=== PATIENT | male | born 1970 | race Caucasian/White ===

== ENCOUNTER 2024-01-04 10:15 | Day surgery (SDC) | payer BC, OTHER ==
[2023-12-30 12:22] VITALS: BMI 31.1
[2024-01-04 10:41] VITALS: TEMP 97.5
[2024-01-04] MEDS: LIDOCAINE 1% (10MG/ML) FOR IV START INTRADERMA PRN (10:42)
[2024-01-04] MEDS: IV FLUID CONTINUATION 1,000 ML IV ONE (10:42)
[2024-01-04] MEDS: LACTATED RINGERS 1,000 ML IV SCH (10:42)
[2024-01-04] MEDS ORDERED: PROPOFOL 10 MG/ML 20 ML VIAL IV ONE (11:26)
--- NOTE | 2024-01-04 11:46 | P.PCN ---
Date of Procedure: 01/04/24 Preoperative Diagnosis: Positive Cologuard Postoperative Diagnosis: Descending colon polyp Procedure(s) Performed: Colonoscopy with hot forcep polypectomy Anesthesia: MAC Surgeon: Papi Carvajal Pathology: other (Descending colon polyp) Condition: stable Disposition: same day Indications for Procedure: 53-year-old male with recent finding of positive Cologuard. Denies any blood in his stool. Denies any family history of colon cancer. Plan for colonoscopy. Risks, benefits and alternatives were provided to the patient. All questions answered. Operative Findings: Descending colon polyp Description of Procedure: The patient was brought to the endoscopy suite. He was then placed in left lateral decubitus position and adequate sedation achieved using conscious sedation. A digital rectal exam was performed and mild internal hemorrhoids were palpated. An endoscope was then placed in the rectum and advanced to the cecum as identified by landmarks including the appendiceal orifice and the ileocecal valve. The prep was good. The colonoscope was then slowly withdrawn, examining for any mucosal abnormalities. The cecum, ascending, transverse, descending and sigmoid colon were visualized adequately. Polyp was found in the descending colon. This was removed with hot forcep polypectomy. Hemostasis maintained. No significant evidence of diverticulosis. No other inflammatory lesions. Retroflexion was performed in the rectum and mild internal hemorrhoids were visible. Excess air was removed. The colonoscope withdrawn and the procedure terminated. The patient was then transferred to the recovery unit in stable condition. Repeat colonoscopy should be performed in 5 years.
[2024-01-04 12:21] VITALS: BP 142/88; PULSE 70; RESP 18
== END 2024-01-04 12:23 | disposition home or self-care (01) ==
LOC: ORWHC2ENDO 10:15
PROVIDERS: ATTEND Surgery
DX: D12.4 Benign neoplasm of descending colon (principal)
CPT/HCPCS: 45385; 88305